=== PATIENT | male | born 1965 | race Two or more races ===

== ENCOUNTER 2020-02-10 06:00 | Outpatient (CLI) | payer OTHER ==
[~2020-02-10] VITALS: Ht 165.1 cm; Wt 130.6 kg
[2020-02-10] MEDS ORDERED: CLONAZEPAM2 M1 PO (12:55)
[2020-02-10] MEDS ORDERED: CYMBALTA20 MG PO (12:55)
[2020-02-10] MEDS ORDERED: HUMALOG MI100 UNIT/2 (12:56)
[2020-02-10] MEDS ORDERED: PROSOM PO (12:56)
[2020-02-10] MEDS ORDERED: XIGDUO XR 5 MG1 EAC1 PO (12:57)
[2020-02-10] MEDS ORDERED: TOPROL XL25 M1 PO (12:57)
[2020-02-10] MEDS ORDERED: NEURONTIN300 MG PO (12:57)
== END 2020-02-10 06:05 | disposition home or self-care (01) ==
LOC: LAB 06:00 → O/R 02-14 07:00 → EDSTATUS 02-14 12:00 → O/R 02-14 12:00
PROVIDERS: ATTEND Urology
DX: C64.1 Malignant neoplasm of right kidney, except renal pelvis (principal); Z01.810 Encounter for preprocedural cardiovascular examination; Z01.812 Encounter for preprocedural laboratory examination; Z01.811 Encounter for preprocedural respiratory examination

== ENCOUNTER 2020-03-29 07:30 | Inpatient (IN) | payer OTHER ==
[~2020-03-29] VITALS: Ht 165.1 cm; Wt 130.6 kg
[~2020-03-29 07:30] MED LIST: CLONAZEPAM2 M1 PO; CYMBALTA20 MG PO; HUMALOG MI100 UNIT/2; NEURONTIN300 MG PO; PROSOM PO; TOPROL XL25 M1 PO; XIGDUO XR 5 MG1 EAC1 PO
[2020-04-03] MEDS ORDERED: ESTAZOLAM2 MG PO (08:23)
[2020-04-03] MEDS ORDERED: DOXAZOSIN MESYLA2 MG PO (08:23)
[2020-04-03] MEDS ORDERED: ATORVASTATIN CA10 MG PO (08:23)
[2020-04-03] MEDS ORDERED: AMLODIPINE BESY10 MG PO (08:24)
[2020-04-03] MEDS ORDERED: DULOXETINE HCL60 MG PO (08:24)
[2020-04-03] MEDS ORDERED: PANTOPRAZOLE SO20 MG PO (08:25)
[2020-04-03] MEDS ORDERED: TAMSULOSIN HCL0.4 MG PO (08:25)
[2020-04-03] MEDS ORDERED: TRIFLUOPERAZINE2 MG PO (08:25)
[2020-04-03] MEDS ORDERED: ZINC50 MG (08:26)
[2020-04-03] MEDS ORDERED: VITAMIN C1000 MG (08:26)
[2020-04-03] MEDS ORDERED: PAIN RELIEVER500 M5 (08:27)
[2020-04-03] MEDS ORDERED: VASOTEC10 MG PO (08:33)
== END 2020-04-07 10:22 | disposition home or self-care (01) | DRG 657 ==
LOC: ADM 07:30 → O/R 04-03 06:00 → SURH 04-03 07:00 → EDSTATUS 04-03 07:30 → CIR.AMB 04-03 07:30 → SURH 04-03 07:30 → SURG 04-03 15:22 → SURH 04-03 17:28
PROVIDERS: ADMIT Urology; ATTEND Urology
PROC: 4A12X4Z Monitoring of Cardiac Electrical Activity, External Approach (ICD-10-PCS; 2020-04-03)
PROC: 0TB00ZZ Excision of Right Kidney, Open Approach (ICD-10-PCS; principal; 2020-04-03 07:00)
DX: C64.1 Malignant neoplasm of right kidney, except renal pelvis (principal); M62.82 Rhabdomyolysis; I10 Essential (primary) hypertension; E11.9 Type 2 diabetes mellitus without complications; Z09 Encounter for follow-up examination after completed treatment for conditions other than malignant neoplasm; Z86.19 Personal history of other infectious and parasitic diseases; F41.8 Other specified anxiety disorders; F32.9 Major depressive disorder, single episode, unspecified